=== PATIENT | female | born 1955 | race African-American/Black ===

== ENCOUNTER 2018-04-28 16:16 | Emergency (ER) | payer MEDICAID, OTHER ==
[~2018-04-28] VITALS: Ht 177.8 cm; Wt 110.0 kg
[~2018-04-28 16:16] MED LIST: AMLO10TA80 PO; CLON0.2T PO; HYDR25TA PO; IBUP-2029 PO; MIRT15TA6 PO
[2018-04-28] MEDS ORDERED: IBUPROFEN 600MG TABLET PO STA (18:25)
[2018-04-28] MEDS ORDERED: PREDNISONE 20MG TABLET PO ONE (18:30)
[2018-04-28 19:19] LABS: BASOPHILS % 0.7 % (0.0-2.0); EOSINOPHILS % 5.3 % (0.0-5.0); HEMATOCRIT. 36.5 % (36.0-48.0); HEMOGLOBIN. 11.8 g/dL (12.0-16.0); LYMPHOCYTES % 32.7 % (20.0-50.0); MEAN CORPUSCULAR HEMOGLOBIN 28.3 pg (28.0-32.0); MEAN CORPUSCULAR VOLUME 87.4 fL (81.0-99.0); MEAN PLATELET VOLUME 11.4 fl (7.4-10.4); MONOCYTES % 8.3 % (2.0-8.0); PLATELET 167 x1000/uL (130-400); RED BLOOD CELL COUNT 4.18 mill/uL (4.2-5.4); RED CELL DISTRIBUTION WIDTH 13.8 % (11.6-14.6)
[2018-04-28 19:25] LABS: CHLORIDE 109 mEq/L (98-107)
[2018-04-28 19:26] LABS: INR 0.9; PROTHROMBIN TIME 9.5 sec (9.1-11.1)
[2018-04-28 21:26] LABS: CLARITY URINE CLEAR (CLEAR); COLOR URINE YELLOW (YELLOW); KETONES URINE TRACE (NEGATIVE); LEUKOCYTE ESTERASE URINE NEGATIVE (NEGATIVE); NITRITE URINE NEGATIVE (NEGATIVE); OCCULT BLOOD URINE NEGATIVE (NEGATIVE); PROTEIN URINE NEGATIVE (NEGATIVE); SPECIFIC GRAVITY URINE 1.016 (1.005-1.030)
[2018-04-28 22:00] VITALS: BP 140/88
== END 2018-04-28 22:01 | disposition home or self-care (01) ==
LOC: ER 16:16
DX: T78.40XA Allergy, unspecified, initial encounter (principal); R60.9 Edema, unspecified; I10 Essential (primary) hypertension; Z90.49 Acquired absence of other specified parts of digestive tract; Z91.040 Latex allergy status; X58.XXXA Exposure to other specified factors, initial encounter
CPT/HCPCS: 36415; 71045; 80053; 81003; 83605; 83880; 84484; 85025; 85610; 93005; 99284; J7512

== ENCOUNTER 2021-07-07 14:37 | Emergency (ER) | payer MEDICAID, OTHER ==
[~2021-07-07] VITALS: Ht 175.3 cm; Wt 69.0 kg
[~2021-07-07 14:37] MED LIST changes: +MIRT-89 PO; -MIRT15TA6 PO
[2021-07-07 14:56] VITALS: BP 157/73
== END 2021-07-07 16:33 | disposition home or self-care (01) ==
LOC: ER 14:37
DX: R10.12 Left upper quadrant pain (principal); R45.1 Restlessness and agitation; F32.A Depression, unspecified; F41.9 Anxiety disorder, unspecified; I12.9 Hypertensive chronic kidney disease with stage 1 through stage 4 chronic kidney disease, or unspecified chronic kidney disease; N18.9 Chronic kidney disease, unspecified; Z90.49 Acquired absence of other specified parts of digestive tract; Z90.710 Acquired absence of both cervix and uterus; Z91.040 Latex allergy status
CPT/HCPCS: 99281